=== PATIENT | female | born 2000 | race Caucasian/White ===

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

== ENCOUNTER 2020-11-09 15:07 | Emergency (ER) | payer BC, OTHER ==
[2020-11-09 15:12] VITALS: TEMP 98.5
[2020-11-09] MEDS ORDERED: KETOROLAC 15 MG/ML 1 ML VIAL IVP STA (15:35)
[2020-11-09 16:09] LABS: Basophils % (A) 0 %; Eosinophils # (A) 0.1 k/uL (0-0.7); Eosinophils % (A) 2 %; HCT 37.7 % (34.0-46.0); HGB 13.5 gm/dL (11.4-16.0); Lymphocytes # (A) 1.4 k/uL (1.0-4.8); Lymphocytes % (A) 20 %; MCH 29.6 pg (25.0-35.0); MCHC 35.9 g/dL (31.0-37.0); MCV 82.4 fL (80.0-100.0); Mean Platelet Volume 7.5; Monocytes # (A) 0.3 k/uL (0-1.0); Monocytes % (A) 4 %; Neutrophils # (A) 5.2 k/uL (1.3-7.7); Neutrophils % (A) 73 %; Platelet Count 209 k/uL (150-450); RBC 4.57 m/uL (3.80-5.40); RDW 13.7 % (11.5-15.5); WBC 7.2 k/uL (4.0-11.0)
[2020-11-09 16:11] LABS: Appearance,Urine Cloudy (Clear); Bacteria,Urine Rare /hpf; Bilirubin,Urine Negative (Negative); Blood,Urine Negative (Negative); Color,Urine Light Yellow; Glucose,Urine (UA) Negative (Negative); Ketones,Urine Negative (Negative); Leukocyte Esterase,Urine Moderate (Negative); Mucus,Urine Rare /hpf; Nitrite,Urine Negative (Negative); PH, Urine 5.5 (5.0-8.0); Protein,Urine Negative (Negative); Specific Gravity,Urine 1.013 (1.001-1.035); Squamous Epithelial Cell,Urine 2 /hpf (0-4); Urobilinogen,Urine <2.0 mg/dL (<2.0); WBC,Urine 9 /hpf (0-5)
[2020-11-09 16:18] LABS: ALT 42 U/L (4-34); AST 37 U/L (14-36); African American GFR (CKD) >90 (>60 ml/min/1.73 sqM); Albumin 4.1 g/dL (3.5-5.0); Alkaline Phosphatase 56 U/L (38-126); Anion Gap 10 mmol/L; Blood Urea Nitrogen 7 mg/dL (7-17); Calcium 9.2 mg/dL (8.4-10.2); Carbon Dioxide 26 mmol/L (22-30); Chloride 102 mmol/L (98-107); Glucose 144 mg/dL (74-99); Non-African American GFR(CKD) >90 (>60 ml/min/1.73 sqM); Potassium 4.2 mmol/L (3.5-5.1); Sodium 138 mmol/L (137-145); Total Bilirubin 0.6 mg/dL (0.2-1.3); Total Protein 7.4 g/dL (6.3-8.2)
[2020-11-09 17:20] VITALS: RESP 18
--- NOTE | 2020-11-09 17:41 | US ---
EXAMINATION TYPE: US pelvic complete DATE OF EXAM: 11/09/2020 COMPARISON: NONE CLINICAL HISTORY: right lower pelvic pain. Morbidly obese patient requested no vaginal ultrasound. TECHNIQUE: Transabdominal (TA). Date of LMP: May 2020 EXAM MEASUREMENTS: Uterus: 7.5 x 3.2 x 4.3 cm Endometrial Stripe: 0.8 cm Right Ovary: 3.5 x 2.4 x 2.2 cm Left Ovary: 3.5 x 2.4 x 2.2 cm 1. Uterus: Anteverted wnl, limited visualization 2. Endometrium: wnl 3. Right Ovary: wnl 4. Left Ovary: wnl Spectral, color and waveform doppler imaging shows good arterial and venous flow within the ovaries ; there is no evidence for ovarian torsion. 5. Bilateral Adnexa: wnl 6. Posterior cul-de-sac: wnl IMPRESSION: No significant abnormality of the pelvic ultrasound.
[2020-11-09] MEDS ORDERED: CEPHALEXIN 500 MG CAP PO STA (18:32)
--- NOTE | 2020-11-09 18:34 | ED ---
Abdominal Pain HPI - General Chief Complaint: Abdominal Pain Stated Complaint: Lower Abd Pain Time Seen by Provider: 11/09/20 15:10 Source: patient Mode of arrival: ambulatory Limitations: no limitations - History of Present Illness Initial Comments: Patient is a 20-year-old previously healthy female who presents emergency room with reported right-sided pelvic pain. Reports that the pain started last night and into this morning. Patient took some Motrin yesterday with improvement in her pain. States that it does not radiate. It is intermittent in nature with no provocative factors. Denies any associated fevers or chills. No nausea or vomiting. Denies any abnormal vaginal bleeding or discharge. Last menstrual cycle was 6 months ago. Patient was on control up until that point and had normal menstrual cycles. Denies concern for or sexually transmitted infections. Denies dysuria, hematuria or double voiding. Denies di arrhea, constipation, melenic stools or hematochezia. Patient denies anorexia. No previous abdominal surgeries. No other alleviating, precipitating or modifying factors - Related Data Previous Rx's Medication Instructions Recorded Cephalexin [Keflex] 500 mg PO Q12HR #14 cap 11/09/20 Ketorolac [Toradol] 10 mg PO Q6HR #20 tab 11/09/20 Allergies Allergy/AdvReac Type Severity Reaction Status Date / Time No Known Allergies Allergy Verified 11/09/20 17:55 Review of Systems ROS Statement: Those systems with pertinent positive or pertinent negative responses have been documented in the HPI. ROS Other: All systems not noted in ROS Statement are negative. Past Medical History Past Medical History: Asthma History of Any Multi-Drug Resistant Organisms: None Reported Past Surgical History: No Surgical Hx Reported Past Psychological History: Anxiety, Depression Smoking Status: Never smoker Past Alcohol Use History: Occasional Past Drug Use History: None Reported General Exam Limitations: no limitations Course Vital Signs 11/09/20 11/09/20 11/09/20 15:09 16:11 17:11 Temperature 98.5 F Pulse Rate 112 H 79 Respiratory 22 18 18 Rate Blood Pressure 153/89 127/73 O2 Sat by Pulse 97 99 Oximetry 11/09/20 11/09/20 18:00 18:41 Temperature 98.5 F Pulse Rate 97 Respiratory 18 18 Rate Blood Pressure 137/83 O2 Sat by Pulse 99 Oximetry Medical Decision Making - Medical Decision Making Upon arrival the patient is placed in room 15. A thorough history and physical exam was performed. IV is established. Patient was given a dose of Toradol. Her laboratory studies were conducted. Patient is requesting not to do a transvaginal ultrasound transabdominal was ordered. Lab studies are reviewed. Urinalysis demonstrates moderate leukocyte esterase, 9 white blood cells and rare bacteria. Ultrasound is performed after the patient feels her bladder which demonstrates no significant abnormality. No signs of torsion. Patient is reevaluated and has improvement in her symptoms. I did discuss limitations and the possibility for appendicitis. Patient states that she like to go home at this time and refuses CT. She is informed that if she has any new or worsening symptoms she will need to return to the emergency department and that appendicitis is in the differential. Patient understood this. She will be given prescription for Toradol and Keflex. Follow up with her Dr. Valeria cabello. Return to the emergency for any new or worsening symptoms. Patient discharged home in stable condition - Lab Data Result diagrams: 11/09/20 16:00 11/09/20 16:00 Lab Results 11/09/20 11/09/20 11/09/20 Range/Units 16:00 16:00 16:00 WBC 7.2 (4.0-11.0) k/uL RBC 4.57 (3.80-5.40) m/uL Hgb 13.5 (11.4-16.0) gm/dL Hct 37.7 (34.0-46.0) % MCV 82.4 (80.0-100.0) fL MCH 29.6 (25.0-35.0) pg MCHC 35.9 (31.0-37.0) g/dL RDW 13.7 (11.5-15.5) % Plt Count 209 (150-450) k/uL MPV 7.5 Neutrophils % 73 % Lymphocytes % 20 % Monocytes % 4 % Eosinophils % 2 % Basophils % 0 % Neutrophils # 5.2 (1.3-7.7) k/uL Lymphocytes # 1.4 (1.0-4.8) k/uL Monocytes # 0.3 (0-1.0) k/uL Eosinophils # 0.1 (0-0.7) k/uL Basophils # 0.0 (0-0.2) k/uL Sodium 138 (137-145) mmol/L Potassium 4.2 (3.5-5.1) mmol/L Chloride 102 (98-107) mmol/L Carbon Dioxide 26 (22-30) mmol/L Anion Gap 10 mmol/L BUN 7 (7-17) mg/dL Creatinine 0.59 (0.52-1.04) mg/dL Est GFR (CKD-EPI)AfAm >90 (>60 ml/min/1.73 sqM) Est GFR (CKD-EPI)NonAf >90 (>60 ml/min/1.73 sqM) Glucose 144 H (74-99) mg/dL Calcium 9.2 (8.4-10.2) mg/dL Total Bilirubin 0.6 (0.2-1.3) mg/dL AST 37 H (14-36) U/L ALT 42 H (4-34) U/L Alkaline Phosphatase 56 (38-126) U/L Total Protein 7.4 (6.3-8.2) g/dL Albumin 4.1 (3.5-5.0) g/dL Urine Color Light Yellow Urine Appearance Cloudy H (Clear) Urine pH 5.5 (5.0-8.0) Ur Specific [place] 1.013 (1.001-1.035) Urine Protein Negative (Negative) Urine Glucose (UA) Negative (Negative) Urine Ketones Negative (Negative) Urine Blood Negative (Negative) Urine Nitrite Negative (Negative) Urine Bilirubin Negative (Negative) Urine Urobilinogen <2.0 (<2.0) mg/dL Ur Leukocyte Esterase Moderate H (Negative) Urine WBC 9 H (0-5) /hpf Ur Squamous Epith Cells 2 (0-4) /hpf Urine Bacteria Rare H (None) /hpf Urine Mucus Rare H (None) /hpf Urine HCG, Qual (Not Detectd) 11/09/20 Range/Units 16:00 WBC (4.0-11.0) k/uL RBC (3.80-5.40) m/uL Hgb (11.4-16.0) gm/dL Hct (34.0-46.0) % MCV (80.0-100.0) fL MCH (25.0-35.0) pg MCHC (31.0-37.0) g/dL RDW (11.5-15.5) % Plt Count (150-450) k/uL MPV Neutrophils % % Lymphocytes % % Monocytes % % Eosinophils % % Basophils % % Neutrophils # (1.3-7.7) k/uL Lymphocytes # (1.0-4.8) k/uL Monocytes # (0-1.0) k/uL Eosinophils # (0-0.7) k/uL Basophils # (0-0.2) k/uL Sodium (137-145) mmol/L Potassium (3.5-5.1) mmol/L Chloride (98-107) mmol/L Carbon Dioxide (22-30) mmol/L Anion Gap mmol/L BUN (7-17) mg/dL Creatinine (0.52-1.04) mg/dL Est GFR (CKD-EPI)AfAm (>60 ml/min/1.73 sqM) Est GFR (CKD-EPI)NonAf (>60 ml/min/1.73 sqM) Glucose (74-99) mg/dL Calcium (8.4-10.2) mg/dL Total Bilirubin (0.2-1.3) mg/dL AST (14-36) U/L ALT (4-34) U/L Alkaline Phosphatase (38-126) U/L Total Protein (6.3-8.2) g/dL Albumin (3.5-5.0) g/dL Urine Color Urine Appearance (Clear) Urine pH (5.0-8.0) Ur Specific [place] (1.001-1.035) Urine Protein (Negative) Urine Glucose (UA) (Negative) Urine Ketones (Negative) Urine Blood (Negative) Urine Nitrite (Negative) Urine Bilirubin (Negative) Urine Urobilinogen (<2.0) mg/dL Ur Leukocyte Esterase (Negative) Urine WBC (0-5) /hpf Ur Squamous Epith Cells (0-4) /hpf Urine Bacteria (None) /hpf Urine Mucus (None) /hpf Urine HCG, Qual Not Detected (Not Detectd) Disposition Clinical Impression: Pelvic pain, Abnormal urinalysis Disposition: HOME SELF-CARE Condition: Stable Instructions (If sedation given, give patient instructions): Pelvic Pain in Women (ED) Additional Instructions: Please follow-up with your primary care doctor in 2-4 days. Return to emergency room for any new or worsening symptoms Prescriptions: Cephalexin [Keflex] 500 mg PO Q12HR #14 cap Ketorolac [Toradol] 10 mg PO Q6HR #20 tab Is patient prescribed a controlled substance at d/c from ED?: No Referrals: Leoncio Lim MD [Primary Care Provider] - 1-2 days Time of Disposition: 18:34
[2020-11-09 18:47] VITALS: BP 137/83; PULSE 97
== END 2020-11-09 18:45 | disposition home or self-care (01) ==
LOC: EC 15:07
DX: R10.2 Pelvic and perineal pain (principal); R82.90 Unspecified abnormal findings in urine
CPT/HCPCS: 99284; 96374; 36415; 80053; 85025; 81001; 81025; 76856; J1885; 93975

== ENCOUNTER 2020-11-10 18:26 | Emergency (ER) | payer BC ==
[2020-11-10 18:37] VITALS: TEMP 98
[2020-11-10] MEDS ORDERED: ONDANSETRON 4 MG/2 ML VIAL IVP STA (18:42)
[2020-11-10] MEDS ORDERED: SODIUM CHLORIDE 0.9% 1,000 ML IV STA (18:42)
[2020-11-10] MEDS ORDERED: MORPHINE SULFATE 4 MG/ML SYRINGE IVP STA (18:59)
[2020-11-10 19:15] LABS: Basophils % (A) 1 %; Eosinophils # (A) 0.1 k/uL (0-0.7); Eosinophils % (A) 1 %; HCT 40.4 % (34.0-46.0); HGB 13.8 gm/dL (11.4-16.0); Lymphocytes # (A) 1.3 k/uL (1.0-4.8); Lymphocytes % (A) 15 %; MCH 28.4 pg (25.0-35.0); MCHC 34.2 g/dL (31.0-37.0); MCV 82.9 fL (80.0-100.0); Mean Platelet Volume 7.6; Monocytes # (A) 0.4 k/uL (0-1.0); Monocytes % (A) 5 %; Neutrophils # (A) 6.3 k/uL (1.3-7.7); Neutrophils % (A) 77 %; Platelet Count 243 k/uL (150-450); RBC 4.87 m/uL (3.80-5.40); WBC 8.2 k/uL (4.0-11.0)
[2020-11-10 19:17] LABS: ALT 49 U/L (4-34); AST 65 U/L (14-36); African American GFR (CKD) >90 (>60 ml/min/1.73 sqM); Albumin 4.5 g/dL (3.5-5.0); Alkaline Phosphatase 56 U/L (38-126); Amylase 34 U/L (30-110); Anion Gap 11 mmol/L; Blood Urea Nitrogen 9 mg/dL (7-17); Calcium 9.5 mg/dL (8.4-10.2); Carbon Dioxide 26 mmol/L (22-30); Chloride 102 mmol/L (98-107); Glucose 129 mg/dL (74-99); Lipase 50 U/L (23-300); Non-African American GFR(CKD) >90 (>60 ml/min/1.73 sqM); Potassium 4.3 mmol/L (3.5-5.1); Sodium 139 mmol/L (137-145); Total Bilirubin 0.7 mg/dL (0.2-1.3); Total Protein 7.8 g/dL (6.3-8.2)
[2020-11-10 19:38] LABS: Appearance,Urine Clear (Clear); Bacteria,Urine Few /hpf; Bilirubin,Urine Negative (Negative); Blood,Urine Large (Negative); Color,Urine Yellow; Glucose,Urine (UA) Negative (Negative); Hyaline Casts,Urine 1 /lpf (0-2); Ketones,Urine Negative (Negative); Leukocyte Esterase,Urine Moderate (Negative); Mucus,Urine Rare /hpf; Nitrite,Urine Negative (Negative); Protein,Urine Negative (Negative); RBC,Urine 3 /hpf (0-5); Squamous Epithelial Cell,Urine 2 /hpf (0-4); Urobilinogen,Urine <2.0 mg/dL (<2.0); WBC,Urine 8 /hpf (0-5)
--- NOTE | 2020-11-10 19:45 | CT ---
EXAMINATION TYPE: CT abdomen pelvis w con DATE OF EXAM: 11/10/2020 COMPARISON: Ultrasound 11/09/2020. HISTORY: Right lower quadrant pain. CT DLP: 3126 mGycm Automated exposure control for dose reduction was used. TECHNIQUE: Helical acquisition of images was performed from the lung bases through the pelvis. CONTRAST: Performed without Oral Contrast and with IV Contrast, patient injected with 100 mL of Isovue 300. FINDINGS: LUNG BASES: No significant abnormality is appreciated. LIVER/GB: No acute abnormality is appreciated. Diffuse hepatic steatosis. PANCREAS: No significant abnormality is seen. SPLEEN: No significant abnormality is seen. ADRENALS: No significant abnormality is seen. KIDNEYS: No significant abnormality is seen. FREE AIR: No free air is visualized. RETROPERITONEAL ADENOPATHY: None visualized REPRODUCTIVE ORGANS: No significant abnormality is seen URINARY BLADDER: No significant abnormality is seen. PELVIC ADENOPATHY: None visualized. OSSEOUS STRUCTURES: No significant abnormality is seen. BOWEL: No significant abnormality is seen. No acute appendicitis. OTHER: None. IMPRESSION: NO ACUTE ABNORMALITY. HEPATIC STEATOSIS.
[2020-11-10 20:02] VITALS: RESP 18
--- NOTE | 2020-11-10 21:35 | ED ---
Abdominal Pain HPI - General Chief Complaint: Abdominal Pain Stated Complaint: abd pain Time Seen by Provider: 11/10/20 18:35 Source: patient Mode of arrival: ambulatory Limitations: no limitations - History of Present Illness Initial Comments: Patient is a 20-year-old previously healthy female presents emergency Department with reported right lower quadrant abdominal pain. Patient was seen yesterday in the emergency room for similar complaint. Did have a previous history of ovarian cysts and therefore a pelvic ultrasound and laboratory studies were obtained. Patient did have improvement in her pain with medication administration. Ultrasound was negative. Patient was discharged home on antibiotics due to her abnormal UA. She was instructed to return to the emergency room should she have any new or worsening symptoms. She reports that her pain got worse overnight and also migrated to the right periumbilical region. She developed some nausea and therefore decided to come back to the ER for evaluation. Continues to deny any fevers. No vomiting. No changes in her bowel or bladder habits. No other alleviating, precipitating or modifying factors - Related Data Previous Rx's Medication Instructions Recorded Cephalexin [Keflex] 500 mg PO Q12HR #14 cap 11/09/20 Ketorolac [Toradol] 10 mg PO Q6HR #20 tab 11/09/20 Cephalexin [Keflex] 500 mg PO Q6HR 1 Days #26 cap 11/10/20 Polyethylene Glycol 3350 [Miralax] 17 gm PO DAILY PRN #527 gm 11/10/20 Allergies Allergy/AdvReac Type Severity Reaction Status Date / Time No Known Allergies Allergy Verified 11/10/20 20:55 Review of Systems ROS Statement: Those systems with pertinent positive or pertinent negative responses have been documented in the HPI. ROS Other: All systems not noted in ROS Statement are negative. Past Medical History Past Medical History: Asthma History of Any Multi-Drug Resistant Organisms: None Reported Past Surgical History: No Surgical Hx Reported Past Psychological History: Anxiety, Depression Smoking Status: Never smoker Past Alcohol Use History: Occasional Past Drug Use History: None Reported General Exam Limitations: no limitations General appearance: alert, in no apparent distress, obese Head exam: Present: atraumatic, normocephalic, normal inspection Eye exam: Present: normal appearance, PERRL, EOMI. Absent: scleral icterus, conjunctival injection, periorbital swelling ENT exam: Present: normal exam, mucous membranes moist Neck exam: Present: normal inspection. Absent: tenderness, meningismus, lymphadenopathy Respiratory exam: Present: normal lung sounds bilaterally. Absent: respiratory distress, wheezes, rales, rhonchi, stridor Cardiovascular Exam: Present: regular rate, normal rhythm, normal heart sounds. Absent: systolic murmur, diastolic murmur, rubs, gallop, clicks GI/Abdominal exam: Present: soft, tenderness (right periumbilical ), normal bowel sounds. Absent: distended, guarding, rebound, rigid Extremities exam: Present: normal inspection, full ROM, normal capillary refill. Absent: tenderness, pedal edema, joint swelling, calf tenderness Back exam: Present: normal inspection Neurological exam: Present: alert, oriented X3, CN II-XII intact Psychiatric exam: Present: normal affect, normal mood Skin exam: Present: warm, dry, intact, normal color. Absent: rash Course Vital Signs 11/10/20 11/10/20 11/10/20 18:35 20:02 21:57 Temperature 98 F Pulse Rate 103 H 83 80 Respiratory 16 18 18 Rate Blood Pressure 157/112 122/74 127/81 O2 Sat by Pulse 96 98 95 Oximetry Medical Decision Making - Medical Decision Making Upon arrival patient was placed into room 5. Thorough history and physical exam was performed. Repeat laboratory studies were performed and the patient was sent for a CT to rule out appendicitis. Laboratory studies are reviewed. Does have history to mild transaminitis. Urinalysis continues to demonstrate moderate leukocyte esterase with few bacteria. CT fails to demonstrate any acute process. Results are discussed the patient's. Did recommend increasing the patient's Keflex to 4 times a day due to possible clinical pyelonephritis. We will also place the patient on MiraLAX she reports that she has not had a bowel movement yet today. She is to follow-up with her primary care doctor. Return to the emergency room for any new or worsening symptoms. patient was discharged with stable condition - Lab Data Result diagrams: 11/10/20 19:00 11/10/20 19:00 Lab Results 11/10/20 11/10/20 11/10/20 Range/Units 19:00 19:00 19:00 WBC 8.2 (4.0-11.0) k/uL RBC 4.87 (3.80-5.40) m/uL Hgb 13.8 (11.4-16.0) gm/dL Hct 40.4 (34.0-46.0) % MCV 82.9 (80.0-100.0) fL MCH 28.4 (25.0-35.0) pg MCHC 34.2 (31.0-37.0) g/dL RDW 14.0 (11.5-15.5) % Plt Count 243 (150-450) k/uL MPV 7.6 Neutrophils % 77 % Lymphocytes % 15 % Monocytes % 5 % Eosinophils % 1 % Basophils % 1 % Neutrophils # 6.3 (1.3-7.7) k/uL Lymphocytes # 1.3 (1.0-4.8) k/uL Monocytes # 0.4 (0-1.0) k/uL Eosinophils # 0.1 (0-0.7) k/uL Basophils # 0.0 (0-0.2) k/uL Sodium (137-145) mmol/L Potassium (3.5-5.1) mmol/L Chloride (98-107) mmol/L Carbon Dioxide (22-30) mmol/L Anion Gap mmol/L BUN (7-17) mg/dL Creatinine (0.52-1.04) mg/dL Est GFR (CKD-EPI)AfAm (>60 ml/min/1.73 sqM) Est GFR (CKD-EPI)NonAf (>60 ml/min/1.73 sqM) Glucose (74-99) mg/dL Plasma Lactic Acid [place] (0.7-2.0) mmol/L Calcium (8.4-10.2) mg/dL Total Bilirubin (0.2-1.3) mg/dL AST (14-36) U/L ALT (4-34) U/L Alkaline Phosphatase (38-126) U/L Total Protein (6.3-8.2) g/dL Albumin (3.5-5.0) g/dL Amylase (30-110) U/L Lipase (23-300) U/L Urine Color Yellow Urine Appearance Clear (Clear) Urine pH 6.0 (5.0-8.0) Ur Specific [place] 1.010 (1.001-1.035) Urine Protein Negative (Negative) Urine Glucose (UA) Negative (Negative) Urine Ketones Negative (Negative) Urine Blood Large H (Negative) Urine Nitrite Negative (Negative) Urine Bilirubin Negative (Negative) Urine Urobilinogen <2.0 (<2.0) mg/dL Ur Leukocyte Esterase Moderate H (Negative) Urine RBC 3 (0-5) /hpf Urine WBC 8 H (0-5) /hpf Ur Squamous Epith Cells 2 (0-4) /hpf Urine Bacteria Few H (None) /hpf Hyaline Casts 1 (0-2) /lpf Urine Mucus Rare H (None) /hpf Urine HCG, Qual Not Detected (Not Detectd) 11/10/20 11/10/20 Range/Units 19:00 19:00 WBC (4.0-11.0) k/uL RBC (3.80-5.40) m/uL Hgb (11.4-16.0) gm/dL Hct (34.0-46.0) % MCV (80.0-100.0) fL MCH (25.0-35.0) pg MCHC (31.0-37.0) g/dL RDW (11.5-15.5) % Plt Count (150-450) k/uL MPV Neutrophils % % Lymphocytes % % Monocytes % % Eosinophils % % Basophils % % Neutrophils # (1.3-7.7) k/uL Lymphocytes # (1.0-4.8) k/uL Monocytes # (0-1.0) k/uL Eosinophils # (0-0.7) k/uL Basophils # (0-0.2) k/uL Sodium 139 (137-145) mmol/L Potassium 4.3 (3.5-5.1) mmol/L Chloride 102 (98-107) mmol/L Carbon Dioxide 26 (22-30) mmol/L Anion Gap 11 mmol/L BUN 9 (7-17) mg/dL Creatinine 0.61 (0.52-1.04) mg/dL Est GFR (CKD-EPI)AfAm >90 (>60 ml/min/1.73 sqM) Est GFR (CKD-EPI)NonAf >90 (>60 ml/min/1.73 sqM) Glucose 129 H (74-99) mg/dL Plasma Lactic Acid [place] 1.5 (0.7-2.0) mmol/L Calcium 9.5 (8.4-10.2) mg/dL Total Bilirubin 0.7 (0.2-1.3) mg/dL AST 65 H (14-36) U/L ALT 49 H (4-34) U/L Alkaline Phosphatase 56 (38-126) U/L Total Protein 7.8 (6.3-8.2) g/dL Albumin 4.5 (3.5-5.0) g/dL Amylase 34 (30-110) U/L Lipase 50 (23-300) U/L Urine Color Urine Appearance (Clear) Urine pH (5.0-8.0) Ur Specific [place] (1.001-1.035) Urine Protein (Negative) Urine Glucose (UA) (Negative) Urine Ketones (Negative) Urine Blood (Negative) Urine Nitrite (Negative) Urine Bilirubin (Negative) Urine Urobilinogen (<2.0) mg/dL Ur Leukocyte Esterase (Negative) Urine RBC (0-5) /hpf Urine WBC (0-5) /hpf Ur Squamous Epith Cells (0-4) /hpf Urine Bacteria (None) /hpf Hyaline Casts (0-2) /lpf Urine Mucus (None) /hpf Urine HCG, Qual (Not Detectd) Disposition Clinical Impression: Abdominal pain, Abnormal urinalysis Disposition: HOME SELF-CARE Condition: Stable Instructions (If sedation given, give patient instructions): Kidney Infection (ED) Additional Instructions: Please call and make an appointment with your doctor. See them within 2-4 days. Take the antibiotic 4 times a day. Return to the ED for any new or worsening symptoms. Prescriptions: Cephalexin [Keflex] 500 mg PO Q6HR 1 Days #26 cap Polyethylene Glycol 3350 [Miralax] 17 gm PO DAILY PRN #527 gm PRN Reason: Constipation Is patient prescribed a controlled substance at d/c from ED?: No Referrals: Leoncio Lim MD [Primary Care Provider] - 1-2 days Time of Disposition: 21:35
[2020-11-10 21:58] VITALS: BP 127/81; PULSE 80
== END 2020-11-10 21:58 | disposition home or self-care (01) ==
LOC: EC 18:26
DX: R10.31 Right lower quadrant pain (principal); R11.0 Nausea; R82.90 Unspecified abnormal findings in urine
CPT/HCPCS: 36415; 80053; 82150; 83605; 83690; 85025; 81001; 81025; 74177; 99284; 96374; 96361; J2405; Q9967

== ENCOUNTER → 2024-09-13 | Outpatient (CLI) | payer OTHER ==
--- NOTE | 2024-09-13 12:01 | CA ---
Exercise Stress Test Report Name: Burke Vazquez Exam Date: 09/13/2024 11:14 Exam Location: [place] Stress Ht (in): 66 Wt (lb): 310 BSA: 2.41 Ordering Phys: Leoncio Lim MD Referring Phys: Anne-Marie Wu [facility] Technologist: Dejon Hyde Age: 24 Gender: F : 2000 Procedure CPT: Indications: Z91.89 OTEHR PERSONAL RISK FCTORS ICD-10 Codes: Patient History: Medications: NUTREXONE, BUPROPION, SERTRALINE, VITEX, VITAMIN D Meds past 24 hrs: Pretest Chest Pain: STRESS TEST Roosevelt Protocol Exercise Duration (min:sec): 03:[address] Depressions (mm): Angina Score: Negrete Score: Resting HR (bpm): 119 Peak HR (bpm): 168 Resting BP (mmHg): 122 / 72 Peak BP (mmHg): 140 / 53 MPHR: 196 Target HR: 167 % MPHR: 86 METS: 5.6 Total Dose: Peak Dose: Atropine: Double Product: 63518 BP Response: Stress Termination: PATIENT ASKED TO STOP Stress Symptoms: VERY SHORT OF BREATH Stress Summary: ECG ANALYSIS Resting ECG: Normal sinus rhythm normal axis normal intervals Stress ECG: Patient exercised on Roosevelt protocol for 3 and half minutes achieving 85% of predicted maximal heart rate and complained of severe shortness of breath and the test was stopped. Nondiagnostic ST-T wave changes were noted with exercise CONCLUSIONS Very poor exercise tolerance which in itself indicates high risk No significant ST segment depression on treadmill Dr. Brad Umaña MD (Electronically Signed) Final Date: 13 September 2024 12:00
== END | disposition home or self-care (01) ==
LOC: RADNMMAIN 10:51
PROVIDERS: ATTEND Family Medicine
DX: R06.02 Shortness of breath (principal); R07.9 Chest pain, unspecified; Z91.89 Other specified personal risk factors, not elsewhere classified
CPT/HCPCS: 93017